=== PATIENT | male | born 1955 | race Caucasian/White ===

== ENCOUNTER 2016-09-22 17:32 | Emergency (ER) | payer MEDICARE, BC ==
--- NOTE | 2016-09-22 18:09 | ERNOTE ---
Upper Extremity HPI - Narrative Date of Service: 09/22/16 - General Extremities Pain Location: 2nd finger: right Time Seen by Provider: 09/22/16 18:01 Source: patient, RN notes reviewed Exam Limitations: no limitations - Immun/Allergies/Home Medications Immunizations: IMMUNIZATION HX Immunizations Up to Date Yes History of Influenza Vaccine No Hx Pneumococcal Vaccination No Allergies/Adverse Reactions: Allergies Allergy/AdvReac Type Severity Reaction Status Date / Time No Known Allergies Allergy Verified 04/06/16 05:26 Home Medications: HOME MEDICATIONS Atorvastatin Calcium 20 mg PO DAILY 09/30/13 [Last Taken 09/30/13] Calcium Carbonate/Vitamin D3 [Calcium 600 + D3 Softgel] 1 each PO DAILY [Last Taken Unknown] Cholecalciferol (Vitamin D3) [Vitamin D3] 5,000 unit PO DAILY 10/14/15 [Last Taken Unknown] Cholecalciferol [Vitamin D] 2,000 unit PO DAILY 10/14/15 [Last Taken Unknown] Dicyclomine HCl [Bentyl] 20 mg PO TID 10/14/15 [Last Taken Unknown] Esomeprazole Magnesium [Nexium] 40 mg PO DAILY 10/14/15 [Last Taken Unknown] Pramipexole Di-HCl [Mirapex ER] 1.5 mg PO DAILY 10/14/15 [Last Taken Unknown] Rivaroxaban [Xarelto] 20 mg PO DAILY 10/14/15 [Last Taken Unknown] Teriparatide [Forteo] 2.4 ml SQ DAILY 10/14/15 [Last Taken Unknown] Metoprolol Tartrate [Lopressor] 25 mg PO BID 04/06/16 [Last Taken Unknown] oxyCODONE HCL/ACETAMINOPHEN [Percocet 5 MG/325 MG] 1 tab PO Q4H PRN 04/06/16 [ Last Taken Unknown] predniSONE [Prednisone] 2 tab PO DAILY #14 tab 09/22/16 [Last Taken Unknown] - History of Present Illness Narrative: Van is a 61-year-old male infiltrated to the emergency department for redness, pain, and swelling in his right index finger that began 2 or 3 days ago. He does not specifically remember injuring the finger, but he reports he takes pain medicine all the time so he may have hurt himself and not known it. Method of Injury: Reports: no apparent injury Associated Symptoms: Denies: tingling, weakness, numbness distally Prior Treament: Denies: recently seen, similar symptoms before, currently on antibiotics Review of Systems - Review of Systems Constitutional: Absent: fever, chills, malaise EYE: Present: no symptoms reported ENT: Present: no symptoms reported Respiratory: Present: no symptoms reported Cardiology: Present: no symptoms reported Gastrointestinal/Abdominal: Absent: nausea, vomiting Genitourinary: Present: no symptoms reported Musculoskeletal: Absent: joint pain, joint swelling Skin: Present: change in color. Absent: lesions, lumps Neurological: Absent: headache, dizziness/light-headedness, weakness, numbness, tingling Endocrine: Present: no symptoms reported Hematologic/Lymphatic: Absent: easy bruising, easy bleeding Psych: Present: no symptoms reported - Patient's Past Medical History Patient History - Medical: Chronic Pain, GERD, Osteoporosis Patient History - Cardiac/Respiratory: Coronary Heart Disease, Hypertension, Hyperlipidemia, Pulmonary Embolism, Other Patient History - Cancer: No Hx of Cancer Patient History - Surgical Procedures: Back Surgery, Cataracts, Pacemaker, Other Patient History - Other: None - Social History Living Situations: home Psych History: No pertinent hx Smoking Status: Former smoker Have you smoked in the past 12 months: No Do you dip or chew tobacco: No Alcohol Use: rarely Drug Use: none - Immunizations Immunizations Up to Date: Yes Hx Pneumococcal Vaccination: No History of Influenza Vaccine: No Physical Exam - Physical Exam General Appearance: Present: wd/wn, alert, no apparent distress Respiratory: Present: no respiratory distress, normal breath sounds, no accessory muscle use, lungs clear Cardiovascular/Chest: Present: regular rate, rhythm, no murmur Extremity Exam: Present: normal range of motion, extremity edema - Right index finger, other - Right index finger tender to palpation proximal to nail. Absent : joint redness, joint swelling Neurological Exam: Present: alert, oriented, normal mood/affect Skin Exam: Present: warm/dry, other - Right index finger erythematous, tender - lateral dorsal aspect just proximal to nail ED Progress - Results and Orders Patient's Lab Results:: I have reviewed the patient's lab results. - Vital Signs Patient's Vital Signs:: I have reviewed the patient's vital signs. Vital Signs: Vital Signs 09/22/16 17:45 Temperature 36.9 C Pulse Rate 67 Respiratory 18 Rate Blood Pressure 140/77 O2 Sat by Pulse 97 Oximetry - X-Ray X-Ray #1 X-Ray: Right index finger Interpretation: Reviewed by me X-ray Comments: Diffuse swelling of the entire finger without acute osseous abnormality - Progress/Reassessment Chief Complaint: Lower Extremity Pain/ Injury Departure Clinical Impression: Gout Qualifiers: Gout site: unspecified site Gout etiology: unspecified cause Chronicity: acute Qualified Code(s): M10.9 - Gout, unspecified - Departure Disposition: Home self-care Condition: Good Instructions: Gout, [id number] Additional Instructions: Continue your routine medications Referrals: Bradley Whipple DO [Primary Care Provider] - Prescriptions: predniSONE [Prednisone] 2 tab PO DAILY #14 tab
--- OUTSIDE RECORDS SUMMARY | 2016-09-22 18:12 | XMS REPORT | Continuity of Care Document ---
:1955 Author Organization [facility] ([facility]) Address [address] [place] [address] Phone [phone] Care Team Providers Name Role Phone Bradley Whipple Primary Care Provider [phone] Source Comments This disclosure is being made pursuant to the Care Everywhere program, applicable federal and state laws, and may not contain all informaitonavailable regarding this patient.[facility] ([facility]) Active Allergies and Adverse Reactions Not on File Current Medications Not on file Active Problems Not on file Social History Tobacco Use Types Packs/Day Years Used Date Never Assessed Plan of Care Health Maintenance Due Date Last Done Comments HCV Screening 1955 Hepatitis B Vaccine (1 of 3 - Primary Series) 1955 Tdap Vaccine 1966 Lipid Disorder Screening 1973 Td Vaccine 1973 Colonoscopy 03/15/2005 Prostate Cancer Screening 2005 Zoster Vaccine 2015 Influenza Vaccine: Seasonal (#1) 11/23/2015 Results from Last 3 Months Not on file
--- OUTSIDE RECORDS SUMMARY | 2016-09-22 18:12 | XMS REPORT | Continuity of Care Document ---
:1955 Author Organization [facility] [place] [address] Care Team Providers Name Role Phone Bradley Whipple Primary Care Provider [phone] Source Comments This disclosure is being made pursuant to the Chatterfly program and maynot contain all information available regarding this patient.[facility] Active Allergies and Adverse Reactions No Known Allergies Current Medications Be aware that medications may not be up to date as of this document. Alwaysverify current medications with the patient. Prescription Sig. Disp. Refills Start Date End Date Status atorvastatin (LIPITOR) Take 1 tablet by 10/03/2011 Active 20 MG tablet mouth daily. calcium citrate-vitamin Take 1 tablet by Active D (CITRACAL+D) 315-200 mouth 2 (two) MG-UNIT per tablet times daily. dicyclomine (BENTYL) 20 Take 1 tablet by 02/18/2011 Active MG tablet mouth 2 (two) times daily. esomeprazole (NEXIUM) Take 1 tablet by 04/13/2011 Active 40 MG capsule mouth daily. metoprolol tartrate Take 1 tablet by 08/10/2015 Active (LOPRESSOR) 25 MG mouth 2 (two) tablet times daily. diphenoxylate-atropine Take 1 tablet by 04/13/2011 Active (LOMOTIL) 2.5-0.025 MG mouth daily as per tablet needed. pramipexole (MIRAPEX) Take 1.5 mg by Active 1.5 MG tablet mouth every evening. oxyCODONE-acetaminophen Take 1 tablet by Active (PERCOCET) 5-325 MG per mouth 2 (two) tablet times daily. vitamin D 2000 UNITS Take 6,000 Units Active CAPS capsule by mouth daily. Teriparatide, Inject into the Active Recombinant, (FORTEO skin. SC) rivaroxaban (XARELTO) Take 1 tablet by 30 tablet 0 01/08/2016 Active 20 MG TABS tablet mouth daily. Active Problems Problem Noted Date Thrombophilia (HCC) 11/24/2015 Blood clot in vein 08/19/2015 Pulmonary embolus (HCC) 08/19/2015 Atrial fibrillation ([facility]) 08/19/2015 Most Recent Encounters Date Type Specialty Providers Description 09/14/2016 Office Visit Oncology Alan Reveles MD Thrombophilia ([facility]) ( Primary Dx) Social History Tobacco Use Types Packs/Day Years Used Date Former Smoker Cigarettes 25 Quit: 03/27/2015 Alcohol Use Drinks/Week oz/Week Comments No 0 Standard drinks or equivalent 0.0 Last Filed Vital Signs Vital Sign Reading Time Taken Blood Pressure 151/72 09/14/2016 8:43 AM CDT Pulse 46 09/14/2016 8:43 AM CDT Temperature 36.2 C (97.1 F) 09/14/2016 8:43 AM CDT Respiratory Rate 12 09/14/2016 8:43 AM CDT Height 1.734 m (5' 8.25") 09/14/2016 8:43 AM CDT Weight 92.647 kg (204 lb 4 oz) 09/14/2016 8:43 AM CDT Body Mass Index 30.81 09/14/2016 8:43 AM CDT Oxygen Saturation 97% 09/14/2016 8:43 AM CDT Plan of Care Date Type Specialty Providers Description 03/24/2017 Appointment Oncology 03/24/2017 Appointment Oncology Alan Reveles MD [address] [place] [phone] (Fax) Health Maintenance Due Date Last Done Comments Hepatitis C Screening 1973 Pneumococcal Medium Risk 19-64 yo (1 of 1 1974 - PPSV23) Tetanus/Pertussis (1 - Tdap) 1974 Well Adult Visit 2005 Zoster Vaccine 60+ 2015 Influenza Immunization (#1) 2015 Colonoscopy 11/25/2020 11/25/2010, 07/16/1999 Results from Last 3 Months Comprehensive metabolic panel (09/14/2016 8:30 AM) Component Value Range Glucose 117(H)Comment: 60-100 mg/dL Fasting Plasma Glucose (FPG)<100 MG/DL Impaired Fasting Glucose (IFG) 100-125 MG/DL Provisional Diagnosis of Diabetes Mellitus > mv=126 MG/DL (Diagnosis Must Be Confirmed) BUN, Blood 15 8-26 mg/dL Creatinine 1.1 0.7-1.4 mg/dL Glomerular Filtration Rate 72(L) >80 mL/min/1.73mm2 Estimate Glomerlular Filtration Rate 83Comment:The estimated GFR has >80 mL/min/ 1.73mm2 Estimate- not been validated for women or patients with serious comorbid conditions, or with extremes of body size, muscle mass, or nutritional status. Calcium 9.8 8.4-10.2 mg/dL Sodium 139 136-145 mmol/L Potassium 4.1 3.4-4.9 mmol/L Chloride 103 99-111 mmol/L CO2 25.9 21.0-32.0 mmol/L Albumin 4.2 3.5-5.0 g/dL Total Protein 7.3 6.1-8.0 g/dL Bilirubin Total 1.8(H) 0.2-1.2 mg/dL Alkaline Phosphatase 75 40-150 U/L AST 27 5-34 U/L ALT 33 0-55 u/L Narrative Testing performed at [facility], [address] [place] [address].Plate Cleaner Charli Sandoval MD CBC auto differential (09/14/2016 8:30 AM) Component Value Range WBC 7.2 3.1-11.0 x10^3/uL RBC 4.94 4.29-5.55 x10^6/uL Hemoglobin 13.7 13.4-16.9 g/dL Hematocrit 42.9 39.2-48.0 % MCV 86.8 82.0-98.0 fL MCH 27.7 27.2-33.3 pg MCHC 31.9(L) 32.0-36.0 g/dL RDW 14.0 11.4-14.2 % SD-RDW 44.7 36.0-47.0 fL Platelets 277 150-450 x10^3/uL MPV 9.8 9.1-12.1 fL NE% 65.4 42.0-76.0 % %LYMPH 22.9 13.5-48.0 % %MONO 9.3 3.5-14.0 % % Eosinophils 1.5 0.0-7.0 % % Basophils 0.6 0.0-1.5 % Imm Gran Relative 0.3 0.0-1.0 % NE# 4.7 1.2-7.3 x10^3/uL Lymphs # 1.7 0.7-3.5 x10^3/uL Dixon# 0.7 0.2-0.9 x10^3/uL Eosinophil # 0.1 0.0-0.5 x10^3/uL Baso# 0.0 0.0-0.1 x10^3/uL Imm Gran Absolute 0.02 0.00-0.10 x10^3/uL NRBC % 0.00 0.00-0.10 /100 WBC Specimen BLOOD Narrative Testing performed at [facility], [address] [place] [phone].Plate Cleaner Charli Sandoval MD
[2016-09-22 19:17] LABS: Hematocrit 40.9 % (42.0-52.0); Hemoglobin 13.1 gm/dL (13.5-18.0); Mean Corpuscular Hemoglobin 28.2 pg (27-31); Mean Platelet Volume 9.8 fl (6.0-9.5); Neutrophil # 5.3 K/mm3 (1.3-6.0); Neutrophil % 64.3 % (42-75.0); Platelet Count 263 K/mm3 (150-450); Red Blood Count 4.65 M/mm3 (4.7-6.0); Red Cell Distribution Width 14.2 % (11.5-14.0); White Blood Count 8.2 K/mm3 (4.0-10.5)
[2016-09-22 19:28] LABS: Anion Gap 12.3 mmol/L (6.8-13.8); BUN/Creatinine Ratio 19.3 (9.0-21.6); Bilirubin, Total 1.1 mg/dL (0.0-1.1); Ca. Corrected For Albumin 8.7 mg/dL (8.4-10.2); Carbon Dioxide 27.9 mmol/L (24-32.6); Potassium 4.2 mmol/L (3.4-4.6); Total Protein 7.4 gm/dL (6.2-8.2); Uric Acid 7.6 mg/dL (2.6-7.2)
[2016-09-22] MEDS ORDERED: predniSONE 20 MG TABLET PO ONE (20:19)
[2016-09-22] MEDS ORDERED: predniSONE 20 MG TABLET ONE (20:38)
[2016-09-22 22:58] VITALS: BP 130/72
== END 2016-09-22 20:42 | disposition home or self-care (01) ==
LOC: ER 17:32
DX: M10.9 Gout, unspecified (principal); G89.29 Other chronic pain; M81.0 Age-related osteoporosis without current pathological fracture; I25.10 Atherosclerotic heart disease of native coronary artery without angina pectoris; I10 Essential (primary) hypertension; K21.9 Gastro-esophageal reflux disease without esophagitis

== ENCOUNTER 2017-03-07 18:32 | Emergency (ER) | payer MEDICARE, BC ==
[2017-03-07 18:46] VITALS: BP 134/70
[2017-03-07] MEDS ORDERED: KETOROLAC TROMETHAMINE 60 MG/2 ML VIAL IM ONE ×2 (18:53→18:57)
[2017-03-07] MEDS ORDERED: ORPHENADRINE CITRATE 30 MG/ML VIAL IM ONE (18:53)
[2017-03-07] MEDS ORDERED: ORPHENADRINE CITRATE 30 MG/ML VIAL ONE (18:57)
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
== END 2017-03-07 19:47 | disposition home or self-care (01) ==
LOC: ER 18:32
DX: M54.5 Low back pain (principal); F17.200 Nicotine dependence, unspecified, uncomplicated; W07.XXXA Fall from chair, initial encounter; Y92.000 Kitchen of unspecified non-institutional (private) residence as the place of occurrence of the external cause; Z79.01 Long term (current) use of anticoagulants; Z86.711 Personal history of pulmonary embolism; E78.5 Hyperlipidemia, unspecified; I10 Essential (primary) hypertension; I50.9 Heart failure, unspecified; Z95.0 Presence of cardiac pacemaker; G89.29 Other chronic pain